=== PATIENT | female | born 1960 | race Caucasian/White ===

== ENCOUNTER 2024-10-12 06:25 | Day surgery (SDC) | payer OTHER, SELFPAY ==
[2024-10-12 07:37] LABS: Glucose - Point of Care 112 mg/dl (70-99)
== END 2024-10-12 09:21 | disposition home or self-care (01) ==
LOC: GI 06:25
PROVIDERS: ATTENDING PHYSICIAN Specialist
DX: Z12.11 Encounter for screening for malignant neoplasm of colon (principal); K57.30 Diverticulosis of large intestine without perforation or abscess without bleeding; K63.5 Polyp of colon; Z98.0 Intestinal bypass and anastomosis status; Z86.0100 Personal history of colon polyps, unspecified
CPT/HCPCS: 45380; 88305; 82962

== ENCOUNTER 2024-10-24 21:15 | Inpatient (IN) | payer OTHER, SELFPAY ==
[2024-10-24] VITALS (17 sets, daily range): BP systolic 85–109; BP diastolic 38–85; BMI 24.8
[2024-10-24 16:01] LABS: Hematocrit 38.5 % (37.0-47.0); Hemoglobin 12.8 g/dL (12.0-16.0); Mean Corp Hgb Conc. 33.2 g/dL (33.0-37.0); Mean Corpuscular Volume 88.5 fL (81.0-99.0); Nucleated Red Blood Cells % 0 %; Platelet Count 219 10^3/uL (130-400); Red Cell Dist. Width 12.2 % (11.5-14.5)
[2024-10-24 16:19] LABS: ALT (SGPT) 169 U/L (0-35); AST (SGOT) 163 U/L (14-36); Albumin 4.3 g/dl (3.5-5.0); Alkaline Phosphatase 64 U/L (38-126); Blood Urea Nitrogen 14 mg/dl (7-17); Calcium 9.0 mg/dl (8.4-10.2); Carbon Dioxide 27 mmol/L (22-30); Chloride 103 mmol/L (98-107); Glucose 155 mg/dl (70-99); Potassium 4.4 mmol/L (3.5-5.1); Sodium 139 mmol/L (135-145); Total Protein 7.3 g/dl (6.3-8.2); eGFR > 60.00
--- NOTE | 2024-10-24 16:40 | ED.GENMED ---
History of Present Illness
General
Chief Complaint: Abdominal Symptoms
Source: patient
Exam Limitations: none
Time Seen by Provider: 10/24/24 16:01
Nursing documentation reviewed up to this point in time: agreed with
History of Present Illness
History of Present Illness:
Patient is a 64-year-old female with history CAD, hypertension, diverticulitis s/p sigmoidectomy who presents to the emergency department for evaluation of persistent diarrhea. Patient states diarrhea started last Thursday and has been relatively
constant. She has also had intermittent fever and chills. She noticed some lower abdominal discomfort today. No dysuria or hematuria. No chest pain or shortness of breath.
Patient states she was on her way to her primary care provider's office this morning when she had multiple episodes of uncontrolled diarrhea prompting visit to the emergency department. She reports feeling lightheaded at the time.
Patient denies any recent antibiotics or hospitalizations. No undercooked seafood. No known sick contacts.
Of note�patient did have a colonoscopy performed by Dr. Briceño 12 days ago where apparently 1 polyp was removed otherwise procedure was uncomplicated.
Past History
Past History
ED Past Medical History: CAD, Hypercholesterolemia, Psychiatric (depression) and Other (Diverticulitis)
ED Past Surgical History: Bowel resection (sigmoid resection for recurrent diverticulitis Apr 2012) and Gynecological (D&C, ablation)
Social History
Tobacco: Non-smoker
Alcohol: Occasional
Drug: None
Personal:
Living: with family
Employment: Employed
Family History
Family History: CAD
Review of Systems
Review of Systems
Allergies reviewed?: Yes
All Other Systems: ROS reviewed and negative except as documented in HPI and ROS
Phy Exam
Physical Exam
Physical Exam:
Vitals: BP soft on arrival, otherwise vital signs are stable. Febrile to 102.1F
General: Patient is well appearing, no acute distress
Skin: Warm and dry, no rashes or lesions
Head: Normocephalic, atraumatic
Eyes: Sclera nonicteric.
Throat: Protecting airway
Neck: Normal ROM, no cervical spine tenderness, no meningismus
Cardiac: Regular rate and rhythm, no murmurs.
Pulm: Normal respiratory effort, no wheezes, rales, rhonchi heard on exam
.
Abdomen: Abdomen soft. Mild tenderness in lower abdomen. No rebound tenderness or guarding. No CVA tenderness.
Extremities: No evidence of cyanosis or edema. Palpable DP pulses bilaterally
Neuro: AAOx3. Grossly intact.
Psychiatric: Normal affect.
Sepsis
Sepsis Screening
Sepsis Assessment: Sepsis
Sepsis Screen
Sepsis Screen: Sepsis
Date: 10/24/24
Time: 19:30
Course
Orders/Labs/Results
Orders:
Orders
10/24/24 Dinner
BRAT
At Your Request: Limited Participation
10/24/24 15:44
Complete Blood Count/With Diff Urgent
Comprehensive Metabolic Panel Urgent
Lipase Urgent
Comment: ADD ON
Magnesium Urgent
Comment: ADD ON
10/24/24 16:15
0.9% Sodium Chloride 1000 ml [Nss] 1,000 ml IV BOLUS
Acetaminophen [Tylenol] 650 mg PO NOW STA
10/24/24 16:16
CT Abd/pelvis W Iv Cont Urgent
Comment: recent colonoscopy
Reason For Exam: Lower abdominal pain, +diarrhea
CDIFF [C difficile Antigen & Toxins] Urgent
ANDREW Source: Feces/Stool
Specimen Description:
Stool Culture Urgent
ANDREW Source: Feces/Stool
Specimen Description:
10/24/24 16:42
Lactic Acid Q4H
Comment: CANCEL 2nd LACTIC ACID IF 1st LACTIC ACID IS LESS THAN 2
Blood Culture Q30M
ANDREW Source: Blood/Venous
Specimen Description:
Blood Culture Q30M
ANDREW Source: Blood/Venous
Specimen Description:
10/24/24 19:01
0.9% Sodium Chloride 1000 ml [Nss] 1,000 ml IV BOLUS
10/24/24 19:59
Azithromycin 500 mg/250 ml [Zithromax Infusion] 500 mg in 250 ml IV NOW
CefTRIAXone [Rocephin] 1,000 mg IV NOW STA
10/24/24 20:40
Admit/Transfer Patient As Directed
Co-Sign Provider:
Level of Care: Inpatient admission
Assign to:: Medical/Surgical
Physician / Group: Calli Terrell
Diagnosis: colitis, hypovolemia, community acquired pneumonia, transaminitis
Reason for Hospitalization: colitis, hypovolemia, community acquired pneumonia, transaminitis
Expected length of stay greater than two midnights?: Yes
ELOS- Estimated Length of Stay in days: 2
I certify the patient meets the requirements for IP care: Yes
PRN Pain Medication Management As Directed
May give lesser potent ordered pain med per pt: Yes
preference::
Protocol:: Medication orders for pain may be administered in a
manner that supports deferring to patient preference
when the pt is:
- Requesting an ordered lesser potent pain medication.
Least to most potent pain medications are defined
as: acetaminophen < NSAID < tramadol < opioids
(morphine, oxycodone, hydromorphone).
- Requesting a lesser dose of the same medication IF
ORDERED.
- Requesting a less intrusive route of administration
if both routes are prescribed by the provider (PO <
IV).
10/24/24 20:41
Code Status As Directed
Resuscitation Status: Full Code
10/24/24 21:32
0.9% Sodium Chloride 1000 ml [Nss] 1,000 ml IV 150 mls/hr
Acetaminophen [Tylenol] 650 mg PO Q4HPRN PRN
10/24/24 21:32
Activity As Directed
Activity Level: Ambulate
Intake/ Output As Directed
Frequency: Per unit guidelines
Vital Signs As Directed
Frequency: Per unit guidelines
Weight As Directed
Frequency: Once
Comment: on admission
DX Deep Vein Thrombosis Video Routine
10/25/24 00:00
Piperacillin/Tazo 3.375 Gram [Zosyn] 3.375 gram in 50 ml IV Q6H
10/25/24 06:00
Basic Metabolic Panel IN AM
Complete Blood Count/No Diff IN AM
10/25/24 08:00
Escitalopram Oxalate [Lexapro] 10 mg PO DAILY
METFORMIN HCl [Glucophage] 500 mg PO BID
Rosuvastatin Calcium [Crestor] 10 mg PO DAILY
10/25/24 18:00
Enoxaparin Sodium [Lovenox] 40 mg SC QPM
Abnormal Lab Results
10/24/24
15:44
Absolute Neuts (auto) 7.8 H 10^3/uL
(1.4-6.5)
Absolute Lymphs (auto) 1.1 L 10^3/uL
(1.2-3.4)
Absolute Monos (auto) 1.4 H 10^3/uL
(0.1-0.6)
Neutrophils % 75.4 H %
(42.2-75.2)
Lymphocytes % 10.4 L %
(20.5-51.1)
Monocytes % 13.0 H %
(1.7-9.3)
Glucose 155 H mg/dl
(70-99)
AST 163 H U/L
(14-36)
ALT 169 H U/L
(0-35)
10/24/24 15:44
10/24/24 15:44
Vital Signs
Initial and Last Documented VS:
Initial Vital Signs
Temp Pulse Resp BP Pulse Ox
102.1 F H 94 18 89/57 95
10/24/24 15:14 10/24/24 15:14 10/24/24 15:14 10/24/24 15:14 10/24/24 15:14
Last Documented Vital Signs
Temp Pulse Resp BP Pulse Ox
98.5 F 70 16 109/57 97
10/24/24 23:53 10/24/24 23:53 10/24/24 23:53 10/24/24 23:53 10/24/24 23:53
MDM/Problems Addressed
Differential Diagnosis Includes:
Not limited to: Acute dehydration, electrolyte abnormalities, sepsis, diverticulitis, C. difficile, colitis, viral illness, etc.
MDM/Problems Addressed:
64-year-old female presenting with 5 days of persistent diarrhea now with lower abdominal pain and fever. No associated vomiting, dysuria, chest pain or shortness of breath. Patient hypotensive and febrile on arrival. On exam�patient in no
apparent distress. Abdomen is soft with mild tenderness in lower abdomen without rebound tenderness or guarding. Cardio/pulmonary assessment unremarkable. Differential broad however considerations include infectious intra-abdominal sources such
as diverticulitis, intra-abdominal abscess, appendicitis, colitis, etc. No risk factors however C. difficile would be on differential, as well as other bacterial causes of diarrhea. Will check basic labs, lactic acid, send blood cultures. Will
obtain CT scan abdomen/pelvis. Will send stool cultures. Will treat with IV fluids and reassess
Update: Labs reviewed CBC without any clinically significant abnormalities. CMP reveals mild transaminitis however no other acute abnormalities. Lipase normal. CT scan shows findings consistent with a diarrheal illness as well as incidentally
noted left lower lobe pneumonia. Patient has no cough or shortness of breath. She has remained borderline hypotensive despite 2 L of IV fluids and is very weak. Given suspected hypotension secondary to hypovolemia from GI losses as well as left
lobe pneumonia�will admit patient for further management. IV antibiotics initiated in the emergency department. Patient accepted to hospitalist service in stable condition.
Chronic conditions affecting care:
History of diverticulitis s/p sigmoidectomy
Acute Exacerbation and/or Progression of Chronic Illness:
N/A
*Radiology
Radiology exam reviewed: radiology read reviewed
*Pulse Oximetry
SaO2: 95
Oxygen Mode of Delivery: Room air
Patient hypoxic: no
*EKG
Interpreted by ED Provider?: NA
*Trout Farmer Interpretation
Rate: Trout Farmer- N/A
*Critical Care Note
Total Time (30-74mins, 75-104mins- exclusive of procedures): Not Applicable
Data Reviewed
Review of Other/Old Records Reveals: Operative Reports (Colonoscopy report 10/12/2024 with 1 polyp removed in ascending colon with evidence of diverticulosis in descending colon and transverse colon.)
Patient Management
Discussion with other providers: Hospitalist
Escalation/DeEscalation of care consider admission/obs:
Admit for further management
ED Attending Note
-
Portions of this chart may have been created with voice recognition software.� Occasional wrong word or��sound alike� substitutions may have occurred due to the inherent limitations of voice recognition software.
Discharge Plan
Departure
Patient Disposition: Admit
Date of Disposition: 10/24/24
Time of Disposition: 19:57
Presentation/result/management discussed w/ accepting MD/DO: Hospitalist
Discharge Problem:
Diarrhea, Hypovolemia, Left lower lobe pneumonia
Interventions
Interventions:
*Risk Screen - Suicide Last Done: 10/24/24 23:56
*General Assessment Last Done: 10/24/24 15:14
*Neglect/Abuse Screening Last Done: 10/24/24 15:14
*ED- Fall Risk Assessment Last Done: 10/24/24 16:09
*ED COVID-19 Vaccine History Last Done: 10/24/24 16:09
*Nursing Disposition Last Done: 10/24/24 21:31
[facility] Assessment Last Done: 10/24/24 16:09
Discharge Date and Time
Discharge Date/Time: 10/24/24 21:42
[2024-10-24] MEDS: TYLENOL 650 MG PO (16:43)
[2024-10-24] MEDS: NSS 1000 IV ×3 (16:44→22:05)
[2024-10-24 17:33] LABS: Lipase 100 U/L (23-300)
[2024-10-24 20:01] LABS: Magnesium 2.2 mg/dl (1.6-2.3)
--- NOTE | 2024-10-24 20:10 | HPS.HSE ---
Family Physician
-
Family Physician: Paul Hester
Chief Complaint
-
diarrhea
History of Present Illness
Patient is a 64-year-old female with past medical history significant for anxiety, diverticulitis and hyperlipidemia who presented to [facility] ED for evaluation of diarrhea. Patient reports that diarrhea started last Thursday and has been consistent
since then with at least 1 large episode a day. She stated she planned to visit primary doctor today when she had multiple episodes of diarrhea and decided to come to ED for evalaution since she started to feel lightheaded with mild abdominal
discomfort as well. Patient denies any fever, chills, cough, shortness of breath, chest pain or urinary symptoms.
Medical History
Past Medical History
Past Medical History: Reports Other
Additional Past Medical History:
anxiety
diverticulitis
NIDDM
hyperlipidemia
Past Surgical History: Reports Other
Additional Past Surgical History:
sigmoidectomy
Social History
Tobacco: Non-smoker
Alcohol: None
Drug: None
Personal:
Living: With Family
Employment: Retired
Family History
Family History: Not pertinent
Allergies / Home Medications
Allergies reflects when Allergies were last updated in [facility].
Home Medications with original date entered in [facility]
Allergy/Medication List:
Allergies
Allergy/AdvReac Type Severity Reaction Status Date / Time
No Known Allergies Allergy Verified 12/31/17 20:15
Home Medications
escitalopram oxalate 10 mg tablet 10 mg PO DAILY 03/28/09
metformin 500 mg tablet 500 mg PO BID 10/24/24
rosuvastatin 10 mg tablet 10 mg PO DAILY 10/24/24
Review of Systems
-
History Source: Patient
Constitutional: Reports No Symptoms
EENT: Reports No Symptoms
Respiratory: Reports No Symptoms
Cardiac: Reports No Symptoms
Abdomen/GI: Reports Abdominal Pain, Diarrhea and Anorexia
: Reports No Symptoms
Musculoskeletal: Reports No Symptoms
Skin: Reports No Symptoms
Neurological: Reports No Symptoms
Endocrine: Reports No Symptoms
Hematologic/Lymphatic: Reports No Symptoms
Psych: Reports No Symptoms
Physical Exam
Vital Signs
Vital Signs
Temp Pulse Resp BP Pulse Ox
98.9 F 61 17 91/52 93
10/24/24 19:09 10/24/24 19:15 10/24/24 19:15 10/24/24 19:15 10/24/24 19:15
Physical Exam
General: Well Developed, Well Nourished and No Apparent Distress
HEENT: NormoCephalic, Moist mucous membranes, Atraumatic, Nose Appears Normal and Ears Appear Normal
Respiratory: Clear
Cardiac: S1/S2 and Regular Rhythm
Breast: Deferred by me
GI: Soft, Non Distended, Normal Bowel Sounds and Tender (mild lower abdomen tenderness)
Rectal: Deferred by Provider
Genito-urinary: Deferred by me
Musculoskeletal: No Clubbing, No Cyanosis and No Edema
Skin: IV/Catheter Site
Neuro: Awake, Alert, AO x 3 and Nonfocal/grossly intact
Psych: Calm and Intact Judgment/Insight
Laboratory Results
-
10/24/24 15:44
10/24/24 15:44
Laboratory Results
Lactic Acid 1.2 mmol/L (0.7-2.0) 10/24/24 16:42
Total Bilirubin 0.7 mg/dl (0.2-1.3) 10/24/24 15:44
AST 163 U/L (14-36) H 10/24/24 15:44
ALT 169 U/L (0-35) H 10/24/24 15:44
Alkaline Phosphatase 64 U/L (38-126) 10/24/24 15:44
Lipase 100 U/L (23-300) 10/24/24 15:44
Data Reviewed
-
CT Scan: Report Reviewed by me (Abd/pel: Left lower lobe pneumonia. Fluid attenuation in the colon indicating a diarrheal illness. Previous colonic resection. 5.4 cm simple appearing left adnexal cyst.)
Lab Data: Labs Reviewed by me (AST 163, ALT 169)
Impression/Plan
-
IMPRESSION/PLAN:
#intractable diarrhea likely 2/2 colitis
#hypotension 2/2 hypovolemia
#community acquired pneumonia
#transaminitis
AST 163, ALT 169
Abd/Pel CT: Left lower lobe pneumonia.
Fluid attenuation in the colon indicating a diarrheal illness. Previous colonic resection.
5.4 cm simple appearing left adnexal cyst.
- Admit to med/surg
- IVF NSS 100cc/hr
- IV Zosyn
- supportive care
#anxiety
- continue escitalopram
#NIDDM
- continue metformin
#hyperlipidemia
- continue rosuvastatin
#diverticulitis
s/p sigmoidectomy
Code status: full code
DVT prophylaxis: lovenox sq
[2024-10-24] MEDS: ZITHROMAX INFUSION 250 IV (20:17)
[2024-10-24] MEDS: ROCEPHIN 1000 MG IV (20:17)
--- NOTE | 2024-10-24 20:47 | W.PN.UPDATE ---
Update Note
Progress Note Update
This is an addendum to H&P written by Josee Atwood on 10/24/2024. �Patient seen and examined independently with PUBLIC SERVICES ASSISTANT.
64-year-old female past medical history of diverticulitis status post sigmoid colectomy, anxiety/depression, menorrhagia, hypercholesterolemia presenting with watery diarrhea. �Also with fever/chills. �Lower abdominal discomfort. �Associated
lightheadedness. No pulmonary symptoms.�
Vital signs show blood pressure 80s. �Fever of 102.
Labs show transaminitis.
CT abdomen pelvis shows left lower lobe pneumonia. �Fluid attenuation in the colon indicating diarrheal illness.
Patient with sepsis secondary to acute infectious colitis. �Also left lower lobe pneumonia. BRAT diet, IV fluids, check blood cultures, check stool studies, Zosyn.
[2024-10-24 22:02] LABS: Glucose - Point of Care 113 mg/dl (70-99)
[2024-10-24] MEDS: NSS 500 IV (22:31)
[2024-10-24] MEDS: ZOSYN 50 IV (23:47)
--- NOTE | 2024-10-25 00:11 | PTCARENOTE ---
Patient arrived from the ED via stretcher at approximately 2130. Patient ambulated from stretcher to bed x1 assist. AAOx3, drowsy. VS as documented. Assessment as documented. Patient oriented to room. Bed in lowest position. Call avila within reach.
[2024-10-25 03:30] VITALS: BP 115/61
[2024-10-25] MEDS: TYLENOL 650 MG PO (03:35)
[2024-10-25] MEDS: ZOSYN 50 IV ×3 (05:52→18:16)
[2024-10-25] MEDS: NSS 1000 IV (05:52)
[2024-10-25 07:00] VITALS: BP 108/59
[2024-10-25 08:00] LABS: Hematocrit 30.7 % (37.0-47.0); Hemoglobin 10.1 g/dL (12.0-16.0); Mean Corp Hgb Conc. 32.9 g/dL (33.0-37.0); Mean Corpuscular Volume 88.2 fL (81.0-99.0); Platelet Count 184 10^3/uL (130-400); Red Cell Dist. Width 12.4 % (11.5-14.5)
[2024-10-25 08:04] LABS: Glucose - Point of Care 92 mg/dl (70-99)
[2024-10-25 08:35] LABS: Blood Urea Nitrogen 11 mg/dl (7-17); Calcium 7.4 mg/dl (8.4-10.2); Carbon Dioxide 24 mmol/L (22-30); Chloride 112 mmol/L (98-107); Estimated Creatinine Clearance 87 ml/min; Glucose 87 mg/dl (70-99); Potassium 3.9 mmol/L (3.5-5.1); Sodium 141 mmol/L (135-145); eGFR > 60.00
[2024-10-25] MEDS: LEXAPRO 10 MG PO (09:04)
[2024-10-25] MEDS: GLUCOPHAGE 500 MG PO (09:04)
[2024-10-25] MEDS: CRESTOR 10 MG PO (09:04)
[2024-10-25 10:35] LABS: Hepatitis C Antibody Negative (Negative)
[2024-10-25 12:52] LABS: Glucose - Point of Care 110 mg/dl (70-99)
[2024-10-25] MEDS: ZOFRAN 4 MG IV (12:55)
--- NOTE | 2024-10-25 13:25 | W.PN.HOSP.TC ---
Today's Communication/Plan
-
adat
abx
ivf
legionella, strep pneum, flu,covid
mrsa swab
incentive олег
Assessment / Plan
Assessment / Plan
Physical Exam
General: Well Developed, Well Nourished and No Apparent Distress
HEENT: NormoCephalic, Moist mucous membranes, Atraumatic, Nose Appears Normal and Ears Appear Normal
Respiratory: Clear
Cardiac: S1/S2 and Regular Rhythm
Breast: Deferred by me
GI: Soft, Non Distended, Normal Bowel Sounds and Tender (mild lower abdomen tenderness)
Rectal: Deferred by Provider
Genito-urinary: Deferred by me
Musculoskeletal: No Clubbing, No Cyanosis and No Edema
Skin: IV/Catheter Site
Neuro: Awake, Alert, AO x 3 and Nonfocal/grossly intact
Psych: Calm and Intact Judgment/Insight
#intractable diarrhea likely 2/2 colitis
most likely gastroenteritis
-adv diet as tolerated
-can cont abx for now
-CT imaging with oral contrast if worsening although improving
-IVF
-f/u legionella, strep pneumo, stool cutlures
#?Pneumonia
-patient with no productive cough although if expectorating, obtain sputum
- On abx
-MRSa swab
-incentive олег
-f/u covid, flu
#transaminitis
-most likely viral
-monitor
#anxiety
- continue escitalopram
#NIDDM
- continue metformin
#hyperlipidemia
- continue rosuvastatin
#diverticulitis
s/p sigmoidectomy
5.4 cm simple appearing left adnexal cyst.
-f/u outpt
Code status: full code
DVT prophylaxis: lovenox sq
Anticipated Discharge: 24 - 48 hours
Subjective/Interval History
-
Date of Service: October 25, 2024
Symptoms improved, tenderness present although improved from yesterday
Objective Data
-
Labs:
Laboratory Results
10/25/24
07:14
WBC 6.6
Hgb 10.1 L D
Hct 30.7 L
Plt Count 184
Sodium 141
Potassium 3.9
Chloride 112 H
Carbon Dioxide 24
BUN 11
Creatinine 0.6
Glucose 87
Calcium 7.4 L D
Vital Signs:
Vital Signs
Temp Pulse Resp BP Pulse Ox
98.5 F 68 20 108/59 94
10/25/24 07:00 10/25/24 07:00 10/25/24 07:00 10/25/24 07:00 10/25/24 07:00
I&O
10/24/24 10/25/24 10/26/24
06:59 06:59 06:59
Intake Total 1979
Balance 1979
Review of Systems
-
History Source: Patient
All other systems: Not reviewed unless documented
Data Reviewed
-
CT Scan: Report Reviewed by me
Labs: Labs Reviewed by me
[2024-10-25 13:35] LABS: COVID-19 Antigen Negative (Negative)
[2024-10-25] MEDS: NSS IV (13:48)
[2024-10-25] MEDS: LR 1000 IV (14:19)
[2024-10-25 15:00] VITALS: BP 106/56
[2024-10-25 16:45] LABS: Glucose - Point of Care 92 mg/dl (70-99)
[2024-10-25] MEDS: LOVENOX 40 MG SC (18:15)
[2024-10-25 21:17] LABS: Glucose - Point of Care 96 mg/dl (70-99)
[2024-10-25 23:10] VITALS: BP 98/61
[2024-10-26] MEDS: ZOSYN 50 IV ×4 (00:04→18:23)
[2024-10-26] MEDS: LR 1000 IV (05:21)
[2024-10-26 06:52] LABS: Hematocrit 29.2 % (37.0-47.0); Hemoglobin 9.6 g/dL (12.0-16.0); Mean Corp Hgb Conc. 32.9 g/dL (33.0-37.0); Mean Corpuscular Volume 89.0 fL (81.0-99.0); Platelet Count 180 10^3/uL (130-400); Red Cell Dist. Width 12.4 % (11.5-14.5)
[2024-10-26 07:14] VITALS: BP 97/60
[2024-10-26 07:20] LABS: Glucose - Point of Care 99 mg/dl (70-99)
[2024-10-26 07:24] LABS: ALT (SGPT) 164 U/L (0-35); AST (SGOT) 137 U/L (14-36); Albumin 3.0 g/dl (3.5-5.0); Alkaline Phosphatase 48 U/L (38-126); Blood Urea Nitrogen 8 mg/dl (7-17); Calcium 8.1 mg/dl (8.4-10.2); Carbon Dioxide 28 mmol/L (22-30); Chloride 110 mmol/L (98-107); Estimated Creatinine Clearance 87 ml/min; Glucose 96 mg/dl (70-99); Potassium 3.8 mmol/L (3.5-5.1); Sodium 140 mmol/L (135-145); Total Protein 5.3 g/dl (6.3-8.2); eGFR > 60.00
[2024-10-26] MEDS: LEXAPRO 10 MG PO (09:07)
[2024-10-26] MEDS: CRESTOR 10 MG PO (09:07)
--- NOTE | 2024-10-26 11:43 | W.PN.HOSP.TC ---
Addendum entered and electronically signed by Jr Mcfarland MD 10/26/24 14:40:
Sepsis-POA
Original Note:
Today's Communication/Plan
-
adv to CLD
abx
hep panel
iron labs
Assessment / Plan
Assessment / Plan
Physical Exam
General: Well Developed, Well Nourished and No Apparent Distress
HEENT: NormoCephalic, Moist mucous membranes, Atraumatic, Nose Appears Normal and Ears Appear Normal
Respiratory: Clear
Cardiac: S1/S2 and Regular Rhythm
Breast: Deferred by me
GI: Soft, Non Distended, Normal Bowel Sounds and Tender (mild lower abdomen tenderness)
Rectal: Deferred by Provider
Genito-urinary: Deferred by me
Musculoskeletal: No Clubbing, No Cyanosis and No Edema
Skin: IV/Catheter Site
Neuro: Awake, Alert, AO x 3 and Nonfocal/grossly intact
Psych: Calm and Intact Judgment/Insight
#intractable diarrhea likely 2/2 colitis
most likely gastroenteritis
-adv diet as tolerated - CLD today
-can cont abx for now
-CT imaging with oral contrast if worsening although improving
-IVF
-f/u legionella, strep pneumo - negative
-Stool cultures if continued diarrhea
#?Pneumonia
-patient with no productive cough although if expectorating, obtain sputum
- On abx
-MRSa swab negative
-incentive олег
-f/u covid, flu negative
#transaminitis
-most likely viral
-f/u hep panel
-monitor
Anemia
-most likely hemodilution in this admission
-no evidence of bleeding
-monitor hgb
-f/u iron lab s
#anxiety
- continue escitalopram
#NIDDM
- continue metformin
#hyperlipidemia
- continue rosuvastatin
#diverticulitis
s/p sigmoidectomy
5.4 cm simple appearing left adnexal cyst.
-f/u outpt
Code status: full code
DVT prophylaxis: lovenox sq
Anticipated Discharge: Within 24 hours
Subjective/Interval History
-
Date of Service: October 26, 2024
feeling better, abd pain improving
Objective Data
-
Labs:
Laboratory Results
10/26/24
06:25
WBC 5.0
Hgb 9.6 L
Hct 29.2 L
Plt Count 180
Sodium 140
Potassium 3.8
Chloride 110 H
Carbon Dioxide 28
BUN 8
Creatinine 0.6
Glucose 96
Calcium 8.1 L
Total Bilirubin 0.5
AST 137 H
ALT 164 H
Alkaline Phosphatase 48
Vital Signs:
Vital Signs
Temp Pulse Resp BP Pulse Ox
98.3 F 63 16 97/60 96
10/26/24 07:14 10/26/24 07:14 10/26/24 07:14 10/26/24 07:14 10/26/24 11:00
I&O
10/25/24 10/26/24 10/27/24
06:59 06:59 06:59
Intake Total 1979
Balance 1979
Review of Systems
-
History Source: Patient
All other systems: Not reviewed unless documented
Data Reviewed
-
CT Scan: Report Reviewed by me
Labs: Labs Reviewed by me
--- NOTE | 2024-10-26 12:13 | PN.CDI ---
CDI
- -
CDI:
Physician Documentation Request
Admit Date: 10/24/24 21:15
Dear Doctor Bartolo,
Please review the following and provide your response in the progress notes.
Clinical Indicators:
Pt admitted with Infectious colitis /Pneumonia
Documented per update note 10/24,' Patient with sepsis secondary to acute infectious colitis. �Also left lower lobe pneumonia.. Zosyn....'
On admission Tmax 102.1, HR 94
Please update the Status on Sepsis documented in the update note:
Sepsis-POA -a valid diagnosis
- Systemic manifestations of infection, with 2 or more SIRS criteria which include:
- Fever >100.9 degrees F or hypothermia < 96.8 degrees F
- Leukocytosis - WBC > 12,000 or leukopenia - WBC < 4,000 or > 10% bands
- Tachycardia > 90 beats per minute
- Tachypnea - RR > 20 breaths per minute or PaCO2 , 32mmHg
Source: Merck Manual 2013
Sepsis -ruled out
Other ( please specify)
Use of terms such as suspected, likely, concern for, or probable (associated with a specific diagnosis that is being evaluated, monitored, or treated as if it exists) are acceptable and can be coded in the inpatient setting, when documented at the
time of discharge.
Thank you,
Radha Morales RN
CDI Specialist
[facility]
Please use your independent medical judgment in providing your response.
[2024-10-26 12:26] LABS: Glucose - Point of Care 111 mg/dl (70-99)
--- NOTE | 2024-10-26 12:53 | CM ---
Initial assessment completed with patient with in room. Patient and live in a 2 story home with no basement, B/B on 2nd and full bath on 1st, 2 steps to enter. 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 Has a RW
and SPC in the home. No in-home services. Does not have a HC-POA. No service. PCP is Dr. Paul Hester and Pharmacy is [facility] on [address] in [place]. Discharge POC: Anticipate home with no needs.
[2024-10-26 13:23] LABS: Ferritin 271.0 ng/ml (11.1-264.0)
[2024-10-26 14:18] LABS: Iron 33 ug/dl (37-170); Total Iron Binding Capacity 216 ug/dl (265-497)
[2024-10-26 15:42] VITALS: BP 96/55
[2024-10-26 18:20] LABS: Glucose - Point of Care 203 mg/dl (70-99)
[2024-10-26] MEDS: LOVENOX 40 MG SC (18:23)
[2024-10-26 21:09] LABS: Glucose - Point of Care 124 mg/dl (70-99)
[2024-10-26 23:24] VITALS: BP 96/52
[2024-10-27] MEDS: ZOSYN 50 IV ×2 (00:37→05:56)
[2024-10-27 06:11] LABS: Hematocrit 31.6 % (37.0-47.0); Hemoglobin 10.7 g/dL (12.0-16.0); Mean Corp Hgb Conc. 33.9 g/dL (33.0-37.0); Mean Corpuscular Volume 89.3 fL (81.0-99.0); Platelet Count 229 10^3/uL (130-400); Red Cell Dist. Width 12.3 % (11.5-14.5)
[2024-10-27 06:17] LABS: ALT (SGPT) 255 U/L (0-35); AST (SGOT) 233 U/L (14-36); Albumin 3.3 g/dl (3.5-5.0); Alkaline Phosphatase 56 U/L (38-126); Blood Urea Nitrogen 8 mg/dl (7-17); Calcium 8.5 mg/dl (8.4-10.2); Carbon Dioxide 31 mmol/L (22-30); Chloride 109 mmol/L (98-107); Estimated Creatinine Clearance 87 ml/min; Glucose 95 mg/dl (70-99); Potassium 4.7 mmol/L (3.5-5.1); Sodium 141 mmol/L (135-145); Total Protein 5.9 g/dl (6.3-8.2); eGFR > 60.00
[2024-10-27 07:00] VITALS: BP 119/59
[2024-10-27 08:03] LABS: Glucose - Point of Care 106 mg/dl (70-99)
[2024-10-27] MEDS: CRESTOR 10 MG PO (09:11)
[2024-10-27] MEDS: LEXAPRO 10 MG PO (09:11)
[2024-10-27] MEDS: FLAGYL 500 MG 100 IV ×2 (10:38→18:24)
[2024-10-27 11:20] LABS: Glucose - Point of Care 166 mg/dl (70-99)
[2024-10-27] MEDS: STERILE WATER FOR INJECTION 10 ML IV (11:44)
[2024-10-27] MEDS: ROCEPHIN 1000 MG IV (11:44)
--- NOTE | 2024-10-27 14:24 | CM ---
CM following re: discharge planning.
Reviewed pt's chart, met with pt.
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
D/C plan: home with anticipated no needs. family to transport at discharge.
CM will follow with discharge plan updates as needed.
--- NOTE | 2024-10-27 14:51 | W.PN.HOSP.TC ---
Today's Communication/Plan
-
monitor cbc
abx, switch to ceftriaxone, flagyl
Assessment / Plan
Assessment / Plan
Physical Exam
General: Well Developed, Well Nourished and No Apparent Distress
HEENT: NormoCephalic, Moist mucous membranes, Atraumatic, Nose Appears Normal and Ears Appear Normal
Respiratory: Clear
Cardiac: S1/S2 and Regular Rhythm
Breast: Deferred by me
GI: Soft, Non Distended, Normal Bowel Sounds and Tender (mild lower abdomen tenderness)
Rectal: Deferred by Provider
Genito-urinary: Deferred by me
Musculoskeletal: No Clubbing, No Cyanosis and No Edema
Skin: IV/Catheter Site
Neuro: Awake, Alert, AO x 3 and Nonfocal/grossly intact
Psych: Calm and Intact Judgment/Insight
#intractable diarrhea likely 2/2 colitis
most likely gastroenteritis
-adv diet as tolerated -LRD
-can cont abx for now, switch to ceft and flagyl
-CT imaging with oral contrast if worsening although improving
-IVF
-f/u legionella, strep pneumo - negative
-Stool cultures if continued diarrhea
#?Pneumonia
-patient with no productive cough although if expectorating, obtain sputum
-improving
- On abx
-MRSa swab negative
-incentive олег
-f/u covid, flu negative
#transaminitis
-most likely viral v DILI
-switch abx
-f/u hep panel
-monitor
Anemia
Iron def Anemia
-most likely hemodilution in this admission
-no evidence of bleeding
-monitor hgb
-ferrous sulfate and primary care screening outpt
#anxiety
- continue escitalopram
#NIDDM
- continue metformin
#hyperlipidemia
- continue rosuvastatin
#diverticulitis
s/p sigmoidectomy
5.4 cm simple appearing left adnexal cyst.
-f/u outpt
Code status: full code
DVT prophylaxis: lovenox sq
Anticipated Discharge: Within 24 hours
Subjective/Interval History
-
Date of Service: October 27, 2024
symptoms improving
Objective Data
-
Labs:
Laboratory Results
10/27/24
05:26
WBC 5.2
Hgb 10.7 L
Hct 31.6 L
Plt Count 229 D
Sodium 141
Potassium 4.7
Chloride 109 H
Carbon Dioxide 31 H
BUN 8
Creatinine 0.6
Glucose 95
Calcium 8.5
Total Bilirubin 0.4
AST 233 H
ALT 255 H
Alkaline Phosphatase 56
Vital Signs:
Vital Signs
Temp Pulse Resp BP Pulse Ox
98.1 F 59 20 119/59 94
10/27/24 07:00 10/27/24 07:00 10/27/24 07:00 10/27/24 07:00 10/27/24 07:00
I&O
10/26/24 10/27/24 10/28/24
06:59 06:59 06:59
Intake Total 2 / 2162 940 / 940 100 / 100
Output Total 40 / 40
Balance 2162 / 2162 900 / 900 100 / 100
Review of Systems
-
History Source: Patient
All other systems: Not reviewed unless documented
Data Reviewed
-
CT Scan: Report Reviewed by me
Labs: Labs Reviewed by me
[2024-10-27 15:00] VITALS: BP 110/61
[2024-10-27 17:20] LABS: Glucose - Point of Care 110 mg/dl (70-99)
[2024-10-27] MEDS: LOVENOX 40 MG SC (18:24)
[2024-10-27 19:44] LABS: Hepatitis B Surface Antigen Negative (Negative)
[2024-10-27 21:04] LABS: Glucose - Point of Care 193 mg/dl (70-99)
[2024-10-27 23:13] VITALS: BP 95/66
[2024-10-28] MEDS: FLAGYL 500 MG 100 IV ×2 (02:20→10:27)
[2024-10-28 07:02] VITALS: BP 125/71
[2024-10-28 07:18] LABS: Glucose - Point of Care 110 mg/dl (70-99)
[2024-10-28 07:35] LABS: Hematocrit 32.8 % (37.0-47.0); Hemoglobin 10.8 g/dL (12.0-16.0); Mean Corp Hgb Conc. 32.9 g/dL (33.0-37.0); Mean Corpuscular Volume 87.9 fL (81.0-99.0); Platelet Count 294 10^3/uL (130-400); Red Cell Dist. Width 12.1 % (11.5-14.5)
[2024-10-28 08:02] LABS: ALT (SGPT) 252 U/L (0-35); AST (SGOT) 179 U/L (14-36); Albumin 3.5 g/dl (3.5-5.0); Alkaline Phosphatase 57 U/L (38-126); Blood Urea Nitrogen 9 mg/dl (7-17); Calcium 8.6 mg/dl (8.4-10.2); Carbon Dioxide 27 mmol/L (22-30); Chloride 109 mmol/L (98-107); Estimated Creatinine Clearance 87 ml/min; Glucose 105 mg/dl (70-99); Potassium 4.1 mmol/L (3.5-5.1); Sodium 140 mmol/L (135-145); Total Protein 6.1 g/dl (6.3-8.2); eGFR > 60.00
[2024-10-28] MEDS: LEXAPRO 10 MG PO (08:21)
[2024-10-28] MEDS: CRESTOR 10 MG PO (10:26)
[2024-10-28 12:16] LABS: Glucose - Point of Care 90 mg/dl (70-99)
[2024-10-28] MEDS: STERILE WATER FOR INJECTION 10 ML IV (12:49)
[2024-10-28] MEDS: ROCEPHIN 1000 MG IV (12:50)
--- NOTE | 2024-10-28 13:29 | W.PN.HOSP.TC ---
Addendum entered and electronically signed by Jr Mcfarland MD 10/28/24 16:35:
[id number]
Original Note:
Today's Communication/Plan
-
abx course
LRD
f/u GI outpt
f/u cbc and cmp in 1 week
adnexal mass work up if needed
Assessment / Plan
Assessment / Plan
Physical Exam
General: Well Developed, Well Nourished and No Apparent Distress
HEENT: NormoCephalic, Moist mucous membranes, Atraumatic, Nose Appears Normal and Ears Appear Normal
Respiratory: Clear
Cardiac: S1/S2 and Regular Rhythm
Breast: Deferred by me
GI: Soft, Non Distended, Normal Bowel Sounds and Tender (mild lower abdomen tenderness)
Rectal: Deferred by Provider
Genito-urinary: Deferred by me
Musculoskeletal: No Clubbing, No Cyanosis and No Edema
Skin: IV/Catheter Site
Neuro: Awake, Alert, AO x 3 and Nonfocal/grossly intact
Psych: Calm and Intact Judgment/Insight
#intractable diarrhea likely 2/2 colitis
most likely gastroenteritis
-adv diet as tolerated -LRD�tolerating and continue for 2 weeks
-can cont abx for now, switch to ceft and flagyl, transition to cefdinir and Flagyl for 8 more days
-IVF
-f/u legionella, strep pneumo - negative
#?Pneumonia
-patient with no productive cough although if expectorating, obtain sputum - no sputum
-improving
- On abx
-MRSa swab negative
-incentive олег
-f/u covid, flu negative
-improved resp status
#transaminitis, improving
-most likely viral v DILI
-switch abx
-f/u hep panel neg
-monitor - monitor outpt
Anemia
Iron def Anemia
-most likely hemodilution in this admission
-no evidence of bleeding
-monitor hgb
-ferrous sulfate and primary care screening outpt
#anxiety
- continue escitalopram
#NIDDM
- continue metformin
#hyperlipidemia
- continue rosuvastatin
#hx of diverticulitis
s/p sigmoidectomy
5.4 cm simple appearing left adnexal cyst.
-f/u outpt
Code status: full code
DVT prophylaxis: lovenox sq
More than 30 minutes spent in discharge including
Final examination of the patient
Summarizing hospital stay
Instructions for continuing care to all relevant caregivers
Preparation of discharge records, prescriptions, and referral forms
Total time spent (in minutes): 36
Anticipated Discharge: Today
Subjective/Interval History
-
Date of Service: October 28, 2024
feeling better, tolerating LRD
Objective Data
-
Labs:
Laboratory Results
10/28/24
06:28
WBC 4.7 L
Hgb 10.8 L
Hct 32.8 L
Plt Count 294 D
Sodium 140
Potassium 4.1
Chloride 109 H
Carbon Dioxide 27
BUN 9
Creatinine 0.6
Glucose 105 H
Calcium 8.6
Total Bilirubin 0.3
AST 179 H
ALT 252 H
Alkaline Phosphatase 57
Vital Signs:
Vital Signs
Temp Pulse Resp BP Pulse Ox
98.5 F 57 20 125/71 95
10/28/24 07:02 10/28/24 07:02 10/28/24 07:02 10/28/24 07:02 10/28/24 07:02
I&O
10/27/24 10/28/24 10/29/24
06:59 06:59 06:59
Intake Total 940 / 940 1590 / 1590
Output Total 40 / 40
Balance 900 / 900 1589 / 1589
Review of Systems
-
History Source: Patient
All other systems: Not reviewed unless documented
Data Reviewed
-
CT Scan: Report Reviewed by me
Labs: Labs Reviewed by me
[2024-10-28 13:31] VITALS: BP 122/75
--- NOTE | 2024-10-28 13:44 | W.DS.TRANS ---
DC Summary - Palliative Care Nurse Practitioner
-
Discharge Instructions:
Discharge Diagnosis/Procedures
#intractable diarrhea likely 2/2 colitis
#?Pneumonia
#transaminitis
Diet Low Cholesterol,Low Fat,Diabetic, Carb
Controlled,Low Residue
Activity As tolerated
Blood Work cbc and cmp in 1 week with pcp; primary care
screening - monitor anemia
Others Tests 5.4 cm simple appearing left adnexal cyst.
-f/u outpt
Instructions:
Stand-Alone Forms:
Changes to Home Medications: Yes
Discharge Medications:
DC Medications w/original date entered in [facility]
escitalopram oxalate 10 mg tablet 10 mg PO DAILY Mental Health/Anxiety 03/28/09
metformin 500 mg tablet 500 mg PO BID Diabetes 10/24/24
rosuvastatin 10 mg tablet 10 mg PO DAILY High Cholesterol 10/24/24
cefdinir 300 mg capsule 300 mg PO Q12H 8 days #16 caps 10/28/24
metronidazole 500 mg tablet 500 mg PO Q8H 8 days #24 tabs 10/28/24
Home Medication Changes
cefdinir 300 mg capsule 300 mg PO Q12H 8 days #16 caps 10/28/24
metronidazole 500 mg tablet 500 mg PO Q8H 8 days #24 tabs 10/28/24
Pending Results: No
== END 2024-10-28 14:03 | disposition home or self-care (01) | DRG 871 ==
LOC: 2 NORTH 21:15
PROVIDERS: Nurse Practitioner Family; Physician Assistant; Student in an Organized Health Care Education/Training Program; ADMITTING PHYSICIAN Hospitalist; ATTENDING PHYSICIAN Internal Medicine; EMERGENCY PHYSICIAN Student in an Organized Health Care Education/Training Program; FAMILY PHYSICIAN Family Medicine
DX: A41.9 Sepsis, unspecified organism (principal); J18.9 Pneumonia, unspecified organism; K52.9 Noninfective gastroenteritis and colitis, unspecified; K71.9 Toxic liver disease, unspecified; F41.9 Anxiety disorder, unspecified; E11.9 Type 2 diabetes mellitus without complications; E78.00 Pure hypercholesterolemia, unspecified; Z79.84 Long term (current) use of oral hypoglycemic drugs; E86.1 Hypovolemia; F32.A Depression, unspecified; I10 Essential (primary) hypertension; I25.10 Atherosclerotic heart disease of native coronary artery without angina pectoris; Z79.899 Other long term (current) drug therapy; I95.89 Other hypotension
CPT/HCPCS: 74177; 80048; 80053; 82728; 82962; 83540; 83550; 83605; 83690; 83735; 85025; 85027; 86705; 86706; 86709; 86803; 87040; 87045; 87046; 87077; 87324; 87340; 87427; 87449; 87502; 87641; 87811; 87899; 93005; 96361; 96365; 96375; 99285; Q9967